=== PATIENT | female | born 1955 | race Caucasian/White ===

== ENCOUNTER 2016-07-02 20:40 | Inpatient (IN) | payer BC, OTHER ==
[~2016-07-02] VITALS: Ht 152.4 cm; Wt 90.0 kg
[~2016-07-02 20:40] MED LIST: ALT5 PO; APAP/HYDROCODON1 T13 PO; ASPIR-LOW81 M1 PO; BACO TOP; BG MC; CALCIUM CARBONA PO; COL100 PO; COL250 PO; COLACE100 MG PO; CYMBALTA30 M1 PO; DEXPF IV; DUL10S RC; FER300 PO; FERROUS SULFAT325 M2 PO; FOL1 PO; FOLIC ACID1 MG PO; FULL CIRCLE BIOT5 MG PO; GEODON PO; GLU10 PO; GLU5 PO; GLU850 PO; HUMULIN N100 U/1 ML SC; HUMULIN R100 U/1 M1 SC; IMDUR30 MG PO; IPRATROPIUM BROM3 M2 HHN; ISOSORBIDE MONO30 MG PO; JANUVIA PO; KCL20L PO; L40 PO; LAC PO; LANTI SQ; LASIX40 MG PO; LEVEMIR100 U/M1 SQ; LIPI20 PO; LOP50 PO; MELATONIN1 MG PO; METFORMIN HCL500 MG PO; METHOTREXATE S2.5 MG PO; METP PO; MIRUD PO; MOBIC PO; MOR2I IV; NEU100 PO; NEXIUM PO; NIT0.4 SL; NOR10T PO; NOR5 PO; NORCO1 TA2 PO; OMEPRAZOLE20 M2 PO; POTASSIUM CHLO10 MEQ PO; PRE125 PO; PRI20 PO; PULMICORT0.5 MG/2 M IH; RIS1 PO; ROX5 PO; SYN75 PO; SYNTHROID0.15 MG PO; THERAGRAN-M1 TA4 PO; TUMS500 MG PO; TYL325 PO; TYLENOL EXTRA500 M2 PO; VITAMIN D1000 I1 PO; VITAMIN-D1000 IU PO; VITC PO; XAN5 PO; Z PO; ZOC10 PO; ZOF4 PO; ZOFI IV; ZYR10 PO; [UNRECOGNIZED DRUG - CODE] IV
[2016-07-02 21:03] VITALS: BP 157/85
[2016-07-02 21:21] VITALS: BP 157/85
[2016-07-03] MEDS ORDERED: CYMBALTA60 M1 PO (00:15)
[2016-07-03] MEDS ORDERED: FER300 PO (00:27)
[2016-07-03] MEDS ORDERED: VITAMIN D1000 I1 PO (00:27)
[2016-07-03] MEDS ORDERED: SYN75 PO (00:27)
[2016-07-03] MEDS ORDERED: ASCORBIC ACID500 M1 PO (00:30)
[2016-07-03] MEDS ORDERED: LIPITOR10 MG PO (00:30)
[2016-07-03] MEDS ORDERED: AMIODARONE HCL200 MG PO (00:30)
[2016-07-03] MEDS ORDERED: DARBEPOETIN ALFA SC (00:33)
[2016-07-03] MEDS ORDERED: FUROSEMIDE40 MG PO (00:35)
[2016-07-03] MEDS ORDERED: DEPAKOTE500 MG PO (00:35)
[2016-07-03] MEDS ORDERED: [UNRECOGNIZED DRUG - CODE] IM (00:37)
[2016-07-03] MEDS ORDERED: HEP5I SC (00:38)
[2016-07-03] MEDS ORDERED: PROTONIX40 MG PO (00:40)
[2016-07-03] MEDS ORDERED: APAP/OXYCODONE1 TA4 PO (00:40)
[2016-07-03] MEDS ORDERED: JANUVIA25 M1 PO (00:41)
[2016-07-03] MEDS ORDERED: SEROQUEL50 M1 PO (00:41)
[2016-07-03] MEDS ORDERED: ULTRAM50 MG PO (00:42)
[2016-07-03] MEDS ORDERED: NEPHRO-VITE VITA1 EA PO (00:42)
[2016-07-03 01:16] LABS: BASOPHIL % 0 % (0-2); PLATELET COUNT 248 x10^3mcL (130-400); RED CELL DISTRIBUTION WIDTH 15.8 % (11.5-14.5)
[2016-07-03 01:41] LABS: FREE T4 0.77 ng/dL (0.76-1.46); FREE THYROXINE INDEX 2.2 ug/dL (1.4-4.5); T4(THYROXINE) 7.2 ug/dL (4.7-13.3)
[2016-07-03 01:42] LABS: T3 TOTAL 0.35 ng/mL
[2016-07-03 01:43] LABS: ALKALINE PHOSPHATASE 89 U/L (46-116); ALT/SGPT 24 U/L (14-59); AST/SGOT 26 U/L (15-37); BILIRUBIN TOTAL 0.36 mg/dL (0.20-1.00); CALCIUM 9.9 mg/dL (8.5-10.1); CARBON DIOXIDE 19.6 mmol/L (21-32); CHLORIDE SERUM 94 mmol/L (98-107); GLUCOSE SERUM 210 mg/dL (74-106); LIPASE 88 IU/L (73-393); POTASSIUM SERUM 4.2 mmol/L (3.5-5.1); SODIUM SERUM 130 mmol/L (136-145)
[2016-07-03 01:57] LABS: ALBUMIN 2.2 g/dL (3.4-5.0); AMYLASE 22 U/L (25-115); CHOLESTEROL 239 mg/dL (<200); CHOLESTEROL/HDL RATIO 7.2; GFR1 9 mL/min; HDL CHOLESTEROL 33 mg/dL (40-60); TOTAL PROTEIN, SERUM 8.3 g/dL (6.4-8.2); TRIGLYCERIDES 411 mg/dL (<150)
[2016-07-03 02:29] LABS: CREATININE SERUM 5.3 mg/dL (0.6-1.0)
[2016-07-03 03:24] VITALS: BP 157/83
[2016-07-03 05:18] VITALS: BP 128/64
[2016-07-03 06:25] LABS: BASOPHIL % 0.1 % (0-2); PLATELET COUNT 233 x10^3mcL (130-400)
[2016-07-03 06:29] LABS: CALCIUM 9.6 mg/dL (8.5-10.1); CARBON DIOXIDE 19.2 mmol/L (21-32); MAGNESIUM 1.6 mg/dL (1.8-2.4); PHOSPHOROUS 5.1 mg/dL (2.5-4.9); POTASSIUM SERUM 4.1 mmol/L (3.5-5.1)
[2016-07-03 06:51] LABS: RED CELL DISTRIBUTION WIDTH 15.4 % (11.5-14.5)
[2016-07-03 07:00] LABS: CREATININE SERUM 5.3 mg/dL (0.6-1.0)
[2016-07-03 09:21] VITALS: BP 151/82
[2016-07-03 17:59] VITALS: BP 127/57
[2016-07-03 22:33] VITALS: BP 92/50
[2016-07-04 05:36] VITALS: BP 94/51
[2016-07-04 07:15] LABS: BASOPHIL % 0.2 % (0-2); PLATELET COUNT 225 x10^3mcL (130-400)
[2016-07-04 07:26] LABS: CARBON DIOXIDE 25.6 mmol/L (21-32); CREATININE SERUM 3.3 mg/dL (0.6-1.0); MAGNESIUM 1.8 mg/dL (1.8-2.4); PHOSPHOROUS 3.5 mg/dL (2.5-4.9); POTASSIUM SERUM 3.5 mmol/L (3.5-5.1); RED CELL DISTRIBUTION WIDTH 15.4 % (11.5-14.5)
[2016-07-04 07:41] LABS: rbc morphology (normal/abnorm) ABNORMAL (NORMAL)
[2016-07-04 07:43] LABS: IRON 25 ug/dL (50-170); TOTAL IRON BINDING CAPACITY 100 ug/dL (250-450)
[2016-07-04 09:42] VITALS: BP 105/52
[2016-07-04 12:32] VITALS: BP 100/46
[2016-07-04 17:40] VITALS: BP 108/46
[2016-07-04 21:32] VITALS: BP 99/51
[2016-07-05 05:25] VITALS: BP 103/52
[2016-07-05 08:54] VITALS: BP 112/66
[2016-07-05 09:55] VITALS: BP 106/60
[2016-07-05 11:27] LABS: BASOPHIL % 1.1 % (0-2); PLATELET COUNT 181 x10^3mcL (130-400)
[2016-07-05 11:36] LABS: CALCIUM 8.9 mg/dL (8.5-10.1); CARBON DIOXIDE 28.8 mmol/L (21-32); CREATININE SERUM 3.4 mg/dL (0.6-1.0); MAGNESIUM 1.5 mg/dL (1.8-2.4); PHOSPHOROUS 3.9 mg/dL (2.5-4.9); POTASSIUM SERUM 3.2 mmol/L (3.5-5.1)
[2016-07-05 11:39] LABS: RED CELL DISTRIBUTION WIDTH 16.7 % (11.5-14.5)
[2016-07-05 12:56] VITALS: BP 140/75
[2016-07-05 17:27] VITALS: BP 141/72
[2016-07-05 22:58] VITALS: BP 116/62
[2016-07-06 06:27] VITALS: BP 137/67
[2016-07-06 08:15] VITALS: BP 140/72
[2016-07-06 10:45] VITALS: BP 140/72
[2016-07-06 13:52] VITALS: BP 129/73
[2016-07-06 21:57] VITALS: BP 148/66
[2016-07-07 05:04] VITALS: BP 151/80
[2016-07-07 11:25] LABS: BASOPHIL % 0.1 % (0-2); PLATELET COUNT 238 x10^3mcL (130-400)
[2016-07-07 11:26] LABS: CALCIUM 9.5 mg/dL (8.5-10.1); CARBON DIOXIDE 25.1 mmol/L (21-32); MAGNESIUM 1.6 mg/dL (1.8-2.4); PHOSPHOROUS 5.6 mg/dL (2.5-4.9); POTASSIUM SERUM 3.6 mmol/L (3.5-5.1); RED CELL DISTRIBUTION WIDTH 16.8 % (11.5-14.5)
[2016-07-07 11:27] LABS: CREATININE SERUM 4.8 mg/dL (0.6-1.0)
[2016-07-07 11:30] VITALS: BP 133/75
[2016-07-07 17:41] VITALS: BP 157/83
[2016-07-07 21:02] VITALS: BP 107/60
[2016-07-08 05:40] VITALS: BP 100/42
[2016-07-08 09:52] VITALS: BP 100/42
[2016-07-08 18:14] VITALS: BP 133/55
[2016-07-08 22:25] VITALS: BP 136/69
[2016-07-09 06:24] VITALS: BP 155/74
[2016-07-09 09:10] VITALS: BP 130/56
[2016-07-09 12:03] VITALS: BP 112/54
[2016-07-09 17:50] VITALS: BP 114/49
[2016-07-09 21:49] VITALS: BP 129/64
[2016-07-10 05:58] VITALS: BP 131/62
[2016-07-10 10:04] VITALS: BP 111/62
[2016-07-10 10:10] LABS: BASOPHIL % 0.2 % (0-2); PLATELET COUNT 250 x10^3mcL (130-400)
[2016-07-10 10:15] LABS: CALCIUM 9.4 mg/dL (8.5-10.1); CREATININE SERUM 2.5 mg/dL (0.6-1.0); MAGNESIUM 1.6 mg/dL (1.8-2.4); PHOSPHOROUS 2.5 mg/dL (2.5-4.9); POTASSIUM SERUM 3.2 mmol/L (3.5-5.1)
[2016-07-10 10:20] LABS: RED CELL DISTRIBUTION WIDTH 17.5 % (11.5-14.5)
[2016-07-10 14:07] VITALS: BP 104/9
[2016-07-10 17:19] VITALS: BP 122/61
[2016-07-10 19:40] VITALS: BP 97/55
[2016-07-10 22:05] VITALS: BP 98/56
[2016-07-11 06:19] VITALS: BP 101/55
[2016-07-11 10:19] VITALS: BP 92/48
[2016-07-11 11:14] VITALS: BP 135/71
[2016-07-11 18:06] VITALS: BP 138/73
[2016-07-11 21:17] VITALS: BP 108/62
[2016-07-12] VITALS (7 sets, daily range): BP systolic 99–156; BP diastolic 60–81
[2016-07-13 05:46] VITALS: BP 127/71
[2016-07-13 09:14] VITALS: BP 148/70
[2016-07-13 13:49] LABS: BASOPHIL % 0.4 % (0-2); PLATELET COUNT 324 x10^3mcL (130-400)
[2016-07-13 13:58] LABS: RED CELL DISTRIBUTION WIDTH 16.2 % (11.5-14.5)
[2016-07-13 16:32] LABS: BASOPHIL % 0.4 % (0-2); PLATELET COUNT 316 x10^3mcL (130-400)
[2016-07-13 16:35] LABS: RED CELL DISTRIBUTION WIDTH 16.5 % (11.5-14.5)
[2016-07-13 17:55] LABS: CALCIUM 9.4 mg/dL (8.5-10.1); CARBON DIOXIDE 20.6 mmol/L (21-32); CREATININE SERUM 2.8 mg/dL (0.6-1.0); MAGNESIUM 1.8 mg/dL (1.8-2.4); POTASSIUM SERUM 3.7 mmol/L (3.5-5.1)
[2016-07-13 18:06] VITALS: BP 99/60
[2016-07-13 22:03] VITALS: BP 93/56
[2016-07-14] VITALS (8 sets, daily range): BP systolic 87–139; BP diastolic 47–72; Ht 152.4 cm; Wt 90.0 kg
[2016-07-14 17:42] LABS: BASOPHIL % 0.3 % (0-2); PLATELET COUNT 238 x10^3mcL (130-400)
[2016-07-14 17:43] LABS: RED CELL DISTRIBUTION WIDTH 16.3 % (11.5-14.5)
[2016-07-14 17:56] LABS: CALCIUM 9.4 mg/dL (8.5-10.1); CARBON DIOXIDE 23.4 mmol/L (21-32); MAGNESIUM 2.1 mg/dL (1.8-2.4); PHOSPHOROUS 5.1 mg/dL (2.5-4.9); POTASSIUM SERUM 4.1 mmol/L (3.5-5.1)
[2016-07-14] MEDS ORDERED: VANCOMYCIN PER PHARM MC (18:01)
[2016-07-14 18:05] LABS: CREATININE SERUM 4.8 mg/dL (0.6-1.0)
[2016-07-15] VITALS (7 sets, daily range): BP systolic 78–103; BP diastolic 33–50
[2016-07-15 06:25] LABS: CALCIUM 9.5 mg/dL (8.5-10.1); CARBON DIOXIDE 20.2 mmol/L (21-32); MAGNESIUM 2.2 mg/dL (1.8-2.4); PHOSPHOROUS 5.7 mg/dL (2.5-4.9); POTASSIUM SERUM 4.2 mmol/L (3.5-5.1)
[2016-07-15 06:32] LABS: BASOPHIL % 0.3 % (0-2); PLATELET COUNT 239 x10^3mcL (130-400)
[2016-07-15 06:50] LABS: CREATININE SERUM 5.6 mg/dL (0.6-1.0)
[2016-07-15 06:55] LABS: RED CELL DISTRIBUTION WIDTH 16.4 % (11.5-14.5)
== END 2016-07-15 13:40 | DRG 252 ==
LOC: MU 20:40 → DU 20:40 → MU 07-09 22:12
PROVIDERS: Family Medicine; Internal Medicine Nephrology; Surgery; ADMIT Family Medicine
PROC: 03160KD Bypass Left Axillary Artery to Upper Arm Vein with Nonautologous Tissue Substitute, Open Approach (ICD-10-PCS; principal; 2016-07-07 12:00)
DX: T82.49XA Other complication of vascular dialysis catheter, initial encounter (principal); N18.6 End stage renal disease; E43 Unspecified severe protein-calorie malnutrition; I12.0 Hypertensive chronic kidney disease with stage 5 chronic kidney disease or end stage renal disease; E87.1 Hypo-osmolality and hyponatremia; D68.69 Other thrombophilia; E11.65 Type 2 diabetes mellitus with hyperglycemia; F20.9 Schizophrenia, unspecified; E03.9 Hypothyroidism, unspecified; E78.5 Hyperlipidemia, unspecified; F41.9 Anxiety disorder, unspecified; M19.90 Unspecified osteoarthritis, unspecified site; M81.0 Age-related osteoporosis without current pathological fracture; I25.2 Old myocardial infarction; Z99.2 Dependence on renal dialysis; Z79.4 Long term (current) use of insulin; Z68.38 Body mass index [BMI] 38.0-38.9, adult; Z91.15 Patient's noncompliance with renal dialysis
CPT/HCPCS: 82962; 83880; 84439; A4301; A4719; C1768; J0690; J0885-EC; J1200; J1630; J1642; J1644; J1815; J2001; J2060; J2250; J2270; J2405; J2704; J3010; J3370; J3475; J3480; J3490; J7030; J7040; J7050; J7120; J7620; P9016; Q0092; Q0163